=== PATIENT | male | born 1975 | race Asian ===

== ENCOUNTER 2022-08-15 07:19 | Emergency (ER) | payer OTHER ==
[~2022-08-15] VITALS: Ht 157.5 cm; Wt 66.2 kg
[2022-08-15 09:10] VITALS: BP 166/105
== END 2022-08-15 09:25 | disposition home or self-care (01) ==
LOC: FSED 07:35
DX: R42 Dizziness and giddiness (principal); R07.89 Other chest pain; I10 Essential (primary) hypertension; F17.210 Nicotine dependence, cigarettes, uncomplicated
CPT/HCPCS: 70450; 80053; 82553; 84484; 85025; 93005; 99284